=== PATIENT | female | born 1950 | race American Indian/Alaskan Native ===

== ENCOUNTER 2016-09-07 07:57 | Outpatient (CLI) | payer MEDICARE ==
--- NOTE | 2016-09-07 12:54 | Mammography Report ---
BILATERAL DIGITAL SCREENING MAMMOGRAM with CAD : 09/07/16 07:57:00 CLINICAL: Routine screening. COMPARISON:03/03/15 FINDINGS: The breasts are heterogeneously dense, which may obscure small masses.Stable bilateral benign calcifications. No mass, architectural distortion or suspicious calcifications. IMPRESSION: No mammographic evidence of malignancy. BI-RADS CATEGORY: 2 -- Benign RECOMMENDATION: Routine mammographic screening in one year. COMMENT: Patient follow-up letters are generated by our [employer] application.
== END 2016-09-07 07:58 | disposition home or self-care (01) ==
LOC: SPVWC 07:57
PROVIDERS: ATTEND Internal Medicine
DX: Z12.31 Encounter for screening mammogram for malignant neoplasm of breast (principal)
CPT/HCPCS: 77067; G0202

== ENCOUNTER 2017-09-10 15:12 | Outpatient (CLI) | payer MEDICARE ==
--- NOTE | 2017-09-11 08:27 | Mammography Report ---
BILATERAL DIGITAL SCREENING MAMMOGRAM with CAD : 09/10/17 15:12:00 CLINICAL: Routine screening. COMPARISON:09/07/16 FINDINGS: The breasts are heterogeneously dense, which may obscure small masses. No mass, architectural distortion or suspicious calcifications. IMPRESSION: No mammographic evidence of malignancy. BI-RADS CATEGORY: 2 -- Benign RECOMMENDATION: Routine mammographic screening in one year. COMMENT: Patient follow-up letters are generated by our [employer] application.
== END 2017-09-10 15:13 | disposition home or self-care (01) ==
LOC: SPVWC 15:12
PROVIDERS: ATTEND Internal Medicine
DX: Z12.31 Encounter for screening mammogram for malignant neoplasm of breast (principal)
CPT/HCPCS: 77067

== ENCOUNTER 2018-10-09 08:45 | Outpatient (CLI) | payer MEDICARE ==
--- NOTE | 2018-10-09 10:25 | Ultrasound Report ---
LEFT DIGITAL DIAGNOSTIC MAMMOGRAM and LEFT BREAST ULTRASOUND: 10/09/18 08:45:00 CLINICAL: Recalled for asymmetry. COMPARISON:09/11/18 screening FINDINGS: ML, rolled CC and spot compression CC views were performed. An irregular lower outer asymmetry persists on all views. Ultrasound of of the outer left breast was performed and demonstrated an irregular partially collapsed cyst at 4 o'clock 4 cm from the nipple measuring 6 x 3 x 3 mm. It appears to correlate with the mammographic density. IMPRESSION: A benign partially collapsed cyst at 4 o'clock 4 cm from the nipple. BI-RADS CATEGORY: 2 - - Benign RECOMMENDATION: Routine mammographic screening in one year. COMMENT: 1. Dense breast tissue, i.e., adenosis, fibrocystic changes, etc., may obscure an underlying neoplasm. 2. Approximately 10% of cancers are not detected with mammography. 3. A negative mammography report should not delay biopsy if a clinically suspicious mass is present. COMMENT: Patient follow-up letters are generated via our [employer] application.
== END 2018-10-09 08:46 | disposition home or self-care (01) ==
LOC: SPVWC 08:45
PROVIDERS: ATTEND Internal Medicine
DX: N60.02 Solitary cyst of left breast (principal)